=== PATIENT | female | born 1980 | race Caucasian/White ===

== ENCOUNTER 2017-03-28 11:26 | Inpatient (IN) | payer SELFPAY ==
[~2017-03-28] VITALS: Ht 160 cm; Wt 102.1 kg
[2017-03-28 12:09] LABS: PLATELET COUNT 306 x10^3mcL (130-400); RED CELL DISTRIBUTION WIDTH 13.2 % (11.5-14.5)
[2017-03-28 12:13] LABS: BASOPHIL % 0 % (0-2)
[2017-03-28 12:20] LABS: CALCIUM 8.9 mg/dL (8.5-10.1); CARBON DIOXIDE 26.1 mmol/L (21-32); CHLORIDE SERUM 104 mmol/L (98-107); CREATININE SERUM 0.8 mg/dL (0.6-1.0); GFR1 > 60 mL/min; GLUCOSE SERUM 138 mg/dL (74-106); POTASSIUM SERUM 3.9 mmol/L (3.5-5.1); SODIUM SERUM 139 mmol/L (136-145)
[2017-03-28 12:27] LABS: ALBUMIN 3.7 g/dL (3.4-5.0); ALKALINE PHOSPHATASE 100 U/L (46-116); ALT/SGPT 72 U/L (14-59); AST/SGOT 83 U/L (15-37); BILIRUBIN TOTAL 1.1 mg/dL (0.20-1.00); LIPASE 209 IU/L (73-393); TOTAL PROTEIN, SERUM 7.6 g/dL (6.4-8.2)
[2017-03-28 16:11] VITALS: BP 113/67
[2017-03-28 16:15] VITALS: Ht 160 cm; Wt 102.1 kg
[2017-03-28 16:49] LABS: MAGNESIUM 2.1 mg/dL (1.8-2.4); PHOSPHOROUS 3.7 mg/dL (2.5-4.9)
[2017-03-28 20:33] LABS: FREE T4 1.05 ng/dL (0.76-1.46); FREE THYROXINE INDEX 2.6 ug/dL (1.4-4.5); T3 TOTAL 1.29 ng/mL; T4(THYROXINE) 8.3 ug/dL (4.7-13.3)
[2017-03-28 20:48] VITALS: BP 117/67
[2017-03-29 01:58] LABS: UA SPECIFIC GRAVITY 1.025 (1.005-1.035); microscopic required? YES; urine erythrocyte NEGATIVE (NEGATIVE)
[2017-03-29 05:17] LABS: AMPHETAMINE QUAL UR NONE DETECTED (NEG <=1000)
[2017-03-29 05:23] VITALS: BP 120/73
[2017-03-29 05:59] LABS: BASOPHIL % 0.5 % (0-2); PLATELET COUNT 298 x10^3mcL (130-400)
[2017-03-29 06:22] LABS: ALKALINE PHOSPHATASE 113 U/L (46-116); ALT/SGPT 194 U/L (14-59); AST/SGOT 145 U/L (15-37); CALCIUM 8.6 mg/dL (8.5-10.1); CARBON DIOXIDE 28.9 mmol/L (21-32); CHLORIDE SERUM 109 mmol/L (98-107); CREATININE SERUM 0.8 mg/dL (0.6-1.0); GFR1 > 60 mL/min; GLUCOSE SERUM 100 mg/dL (74-106); POTASSIUM SERUM 4.4 mmol/L (3.5-5.1); SODIUM SERUM 147 mmol/L (136-145)
[2017-03-29 06:29] LABS: ALBUMIN 3.2 g/dL (3.4-5.0)
[2017-03-29 09:09] VITALS: BP 132/77
[2017-03-29 13:35] VITALS: BP 130/65
[2017-03-29 17:04] VITALS: BP 144/85
[2017-03-29 17:59] LABS: ALBUMIN 3.3 g/dL (3.4-5.0); BILIRUBIN DIRECT 0.37 mg/dL (0.0-0.2); BILIRUBIN TOTAL 0.7 mg/dL (0.20-1.00); TOTAL PROTEIN, SERUM 6.7 g/dL (6.4-8.2)
[2017-03-29 21:08] VITALS: BP 125/79
[2017-03-30 05:58] LABS: BASOPHIL % 0.3 % (0-2); PLATELET COUNT 329 x10^3mcL (130-400); RED CELL DISTRIBUTION WIDTH 13.6 % (11.5-14.5)
[2017-03-30 06:10] VITALS: BP 133/69
[2017-03-30 06:20] LABS: CALCIUM 8.1 mg/dL (8.5-10.1); CARBON DIOXIDE 28.4 mmol/L (21-32); CHLORIDE SERUM 109 mmol/L (98-107); CREATININE SERUM 0.9 mg/dL (0.6-1.0); GFR1 > 60 mL/min; GLUCOSE SERUM 110 mg/dL (74-106); POTASSIUM SERUM 4.3 mmol/L (3.5-5.1); SODIUM SERUM 146 mmol/L (136-145)
[2017-03-30 10:29] VITALS: BP 108/62
[2017-03-30 14:09] VITALS: BP 139/72
[2017-03-30 18:40] VITALS: BP 127/76
[2017-03-30 21:37] VITALS: BP 138/60
[2017-03-31 06:14] VITALS: BP 136/73
[2017-03-31 07:22] LABS: PLATELET COUNT 314 x10^3mcL (130-400); RED CELL DISTRIBUTION WIDTH 13.6 % (11.5-14.5)
[2017-03-31 07:23] LABS: BASOPHIL % 0 % (0-2); CALCIUM 8.3 mg/dL (8.5-10.1); CARBON DIOXIDE 29.4 mmol/L (21-32); CHLORIDE SERUM 103 mmol/L (98-107); CREATININE SERUM 0.8 mg/dL (0.6-1.0); GFR1 > 60 mL/min; GLUCOSE SERUM 78 mg/dL (74-106); POTASSIUM SERUM 3.4 mmol/L (3.5-5.1); SODIUM SERUM 142 mmol/L (136-145)
[2017-03-31 10:01] VITALS: BP 150/77
[2017-03-31 13:05] VITALS: BP 156/76
[2017-03-31 17:21] VITALS: BP 150/77
[2017-03-31 21:15] VITALS: BP 128/73
[2017-04-01 06:00] VITALS: BP 139/80
[2017-04-01 06:20] LABS: PLATELET COUNT 322 x10^3mcL (130-400); RED CELL DISTRIBUTION WIDTH 13.6 % (11.5-14.5)
[2017-04-01 06:35] LABS: ALKALINE PHOSPHATASE 119 U/L (46-116); ALT/SGPT 73 U/L (14-59); AST/SGOT 32 U/L (15-37); BILIRUBIN TOTAL 0.95 mg/dL (0.20-1.00); CALCIUM 8.3 mg/dL (8.5-10.1); CARBON DIOXIDE 27.5 mmol/L (21-32); CHLORIDE SERUM 105 mmol/L (98-107); CREATININE SERUM 0.7 mg/dL (0.6-1.0); GFR1 > 60 mL/min; GLUCOSE SERUM 122 mg/dL (74-106); MAGNESIUM 2.1 mg/dL (1.8-2.4); PHOSPHOROUS 1.5 mg/dL (2.5-4.9); POTASSIUM SERUM 4.3 mmol/L (3.5-5.1); SODIUM SERUM 142 mmol/L (136-145); TOTAL PROTEIN, SERUM 6.8 g/dL (6.4-8.2)
[2017-04-01 06:37] LABS: ALBUMIN 2.8 g/dL (3.4-5.0)
[2017-04-01 08:38] LABS: BAND NEUTROPHIL 21 % (0-10); BASOPHIL 0 % (0-2); METAMYELOCTE 2 % (0-2); MONOCYTE 6 % (0-7); SEGMENTED NEUTROPHILS 63 % (37-75)
[2017-04-01 08:40] LABS: PLATELET MORPHOLOGY GIANT PLATELET SEEN; rbc morphology (normal/abnorm) ABNORMAL (NORMAL)
[2017-04-01 10:05] VITALS: BP 142/75
[2017-04-01 17:48] VITALS: BP 144/70
[2017-04-01 21:56] VITALS: BP 119/62
[2017-04-02 06:28] LABS: CALCIUM 8.4 mg/dL (8.5-10.1); CARBON DIOXIDE 30.7 mmol/L (21-32); CHLORIDE SERUM 98 mmol/L (98-107); CREATININE SERUM 0.7 mg/dL (0.6-1.0); GFR1 > 60 mL/min; GLUCOSE SERUM 107 mg/dL (74-106); MAGNESIUM 1.9 mg/dL (1.8-2.4); PHOSPHOROUS 1.8 mg/dL (2.5-4.9); POTASSIUM SERUM 3.5 mmol/L (3.5-5.1); SODIUM SERUM 136 mmol/L (136-145)
[2017-04-02 06:47] VITALS: BP 133/66
[2017-04-02 06:49] LABS: BASOPHIL % 0.4 % (0-2); PLATELET COUNT 339 x10^3mcL (130-400); RED CELL DISTRIBUTION WIDTH 13.5 % (11.5-14.5)
[2017-04-02 09:17] VITALS: BP 107/71
[2017-04-02] MEDS ORDERED: SIMETHICONE80 MG CH (15:25)
[2017-04-02] MEDS ORDERED: LAC PO (15:25)
[2017-04-02] MEDS ORDERED: PRI20 PO (15:25)
[2017-04-02 15:26] VITALS: BP 107/71
[2017-04-02] MEDS ORDERED: LEVAQUIN750 MG PO (15:27)
[2017-04-02] MEDS ORDERED: FLA500 PO (15:28)
[2017-04-02] MEDS ORDERED: COL100 PO (15:29)
== END 2017-04-02 16:52 | disposition home or self-care (01) | DRG 444 ==
LOC: ED 11:26 → DU 14:56 → MU 14:56 → DU 15:56 → MU 04-01 12:55
PROVIDERS: Emergency Medicine; Family Medicine; Internal Medicine; Student in an Organized Health Care Education/Training Program; ADMIT Family Medicine
PROC: 0F798ZZ Dilation of Common Bile Duct, Via Natural or Artificial Opening Endoscopic (ICD-10-PCS; principal; 2017-03-29 07:30)
PROC: BF111ZZ Fluoroscopy of Biliary and Pancreatic Ducts using Low Osmolar Contrast (ICD-10-PCS; 2017-03-29 07:30)
DX: K80.50 Calculus of bile duct without cholangitis or cholecystitis without obstruction (principal); K85.90 Acute pancreatitis without necrosis or infection, unspecified; N17.0 Acute kidney failure with tubular necrosis; E43 Unspecified severe protein-calorie malnutrition; J69.0 Pneumonitis due to inhalation of food and vomit; Z68.41 Body mass index [BMI] 40.0-44.9, adult; K82.8 Other specified diseases of gallbladder; Z90.49 Acquired absence of other specified parts of digestive tract; E78.2 Mixed hyperlipidemia; E66.01 Morbid (severe) obesity due to excess calories; R73.03 Prediabetes; E02 Subclinical iodine-deficiency hypothyroidism; R80.9 Proteinuria, unspecified; E87.6 Hypokalemia; E83.51 Hypocalcemia; K76.0 Fatty (change of) liver, not elsewhere classified
CPT/HCPCS: 43262; 82962; 84439; C1769; C9113; J0295; J0696; J1170; J1610; J1885; J1940; J2250; J2405; J2704; J3010; J7030; J7120; J8597; Q0092; Q0162; Q9967